=== PATIENT | female | born 1945 | race Caucasian/White ===

== ENCOUNTER 2019-03-14 16:04 | Inpatient (IN) | payer MEDICARE ==
[~2019-03-14] VITALS: Ht 161.3 cm; Wt 51.2 kg
--- NOTE | ~2019-03-14 | PN ---
PATIENT:ARTHUR TOBAR MEDICAL RECORD: [id number] LOCATION:[facility] ADMISSION DATE: 03/14/19 PROGRESS NOTE DATE OF SERVICE: 03/23/2019 SUBJECTIVE: Ms. Tobar is a 73-year-old female who was admitted secondary to after having been found by a neighbor lying down in her own feces. The patient, this morning, for our approach was lying in her bed basically talking to herself. She continues to complain of pain. I had discussed with CARB[employer] ROD INSERTER yesterday and baclofen has been increased. Apparently, the patient has been unable or unwilling to work with PT. No hallucinations. She slept 8 hours, eating 20, 100 and 20%. Last bowel movement on the . Latest vital signs 99, 113, 18, 122/59 and 96%. Coreg was discontinued yesterday due to hypotension. Also, her vitamin D is extremely low at 18.3, 5000 units daily have been started. ASSESSMENT: Unchanged. PLAN: As above. We will start vitamin D. Anticipate discharge to a nursing care as the patient is unable to physically take care of herself and continues to be confused. TRANSINT:[id number] Voice Confirmation ID: [id number] DOCUMENT ID: [id number] PEDRO GARCÍA MD CC: [id number] DICTATION DATE: 03/23/19719 WHEEL BLOCKER: 03/23/19 1424 ADM IN [address] [place] [address]
[2019-03-14] MEDS ORDERED: HYDROCODON-ACE1 EA10 PO (16:26)
[2019-03-14] MEDS ORDERED: NEURONTIN600 MG (16:27)
[2019-03-14] MEDS ORDERED: REMERON30 MG PO (16:28)
[2019-03-14] MEDS ORDERED: COUMADIN7.5 MG PO (16:29)
[2019-03-14] MEDS ORDERED: XANAX1 MG PO (16:29)
[2019-03-14] MEDS ORDERED: CARDIZEM CD240 MG PO (16:30)
[2019-03-14] MEDS ORDERED: COREG 3.1253.125 MG PO (16:30)
[2019-03-14] MEDS ORDERED: ROCEPHIN 1 GM/D51 G1 IV (16:32)
[2019-03-14] MEDS ORDERED: DIFLUCAN150 MG PO (16:33)
[2019-03-14 20:03] VITALS: BP 140/74
--- NOTE | 2019-03-15 02:15 | NUR ---
Patient arrive at 19:40 from , calm and cooperative and confused, VSS T 98.1, BP 140/74, P 104, R 22, O2 99%, Code word is kiara, code status is Full Code, patient went straight to sleep, Verbal consent for treatment from patient at 01:00 when she work up for a short time, no children, last August, will continue to monitor.
[2019-03-15 02:36] VITALS: BP 140/74; BMI 24.0
[2019-03-15 07:21] LABS: BASOPHILS 0.3 % (0-2); EOSINOPHILS 0.5 % (0-7); HEMATOCRIT 38.9 % (36.0-48.0); HEMOGLOBIN 13.8 g/dL (12-16); IMMATURE GRANULOCYTES 0.2 % (0-5); LYMPHOCYTES 27.5 % (15-50); MCH 31.9 pg (26.0-34.0); MCHC 35.5 g/dL (31.0-37.0); MCV 89.8 fL (80.0-100.0); MEAN PLATELET VOLUME 8.7 fL (7.4-10.4); MONOCYTES 6.3 % (2-11); NEUTROPHILS 65.2 % (40-80); PLATELET COUNT 293 10x3/uL (130-400); RBC 4.33 10x6/uL (4.00-5.40); RDW 13.8 % (11.5-14.5)
[2019-03-15 07:38] LABS: INR 1.31 (0.85-1.17); PROTIME 15.7 SECONDS (11.6-15.0)
[2019-03-15 07:47] LABS: ALBUMIN 2.8 g/dL (3.4-5.0); ALKALINE PHOSPHATASE 61 U/L (46-116); ALT (SGPT) 33 U/L (10-68); CALC OSMOLALITY 276 mosm/kg (275-300); CALCIUM 10.4 mg/dL (8.5-10.1); CARBON DIOXIDE 28.3 mmol/L (21.0-32.0); CHLORIDE - SERUM 103 mmol/L (98-107); CHOL - HDL RATIO 4.9 ratio (2.3-4.1); CHOLESTEROL, TOTAL 195 mg/dL (0-200); CREATININE - SERUM 0.5 mg/dL (0.6-1.3); GLUCOSE 104 mg/dL (74-106); HDL CHOLESTEROL 40 mg/dL (32-96); LDL CHOLESTEROL 141 mg/dL (0-100); LDL-HDL RATIO 3.5 ratio (1.5-3.5); POTASSIUM - SERUM 3.9 mmol/L (3.5-5.1); PROTEIN - SERUM 7.5 g/dL (6.4-8.2); SODIUM 138 mmol/L (136-145); THYROID STIMULATING HORMONE 0.54 uIU/mL (0.36-3.74); TRIGLYCERIDE 74 mg/dL (30-200); UREA NITROGEN 15 mg/dL (7-18); eGFR NON AFRICAN AMERICAN > 90 mL/min (90-120)
[2019-03-15 08:52] VITALS: BMI 24.0
[2019-03-15 09:20] VITALS: BP 158/81
[2019-03-15 09:25] VITALS: Ht 161.3 cm; Wt 51.2 kg
--- NOTE | 2019-03-15 10:22 | NUR ---
B) The patient is awake, she is pleasant, she knows her name, , but she doesn't know the place or date. She can not tell us her age either. She is not ambulatory, although, according to staff at [facility], she has a neighbor that states she lived alone and walking before he found her in her bed covered in feces. Today she presents quiet, calm, and she does smile at staff. She is interacting in groups. I) Provide prescribed meds, encourage all groups and activities. R) The patient is interacting with staff and peers. She denies S.I., she has poor insight into her situation. P) Continue POC.
--- NOTE | 2019-03-15 14:45 | NUR ---
Did get the patient's EKG, it does show some tachycardia.
--- NOTE | 2019-03-15 15:56 | NUR ---
The patient is getting upset with the other patient yelling and asks "How do you do it and how can you stand that, some of these people are scary." Did provide ativan 0.5 mg PO now.
--- NOTE | 2019-03-15 16:21 | NUR ---
The patient is calmer now, she says the pill did help her. She says "Yes, I'm ok."
[2019-03-15 20:10] VITALS: BP 157/86
--- NOTE | 2019-03-16 04:50 | NUR ---
B) Patient is alert and orieted to self, calm and cooperative, I) Administered scheduled medications as ordered, mionitored for safety R) Mediation compliant, sleeping quietly in her bed, P) Continue plan of care.
[2019-03-16 06:12] LABS: VITAMIN D 25 HYDROXY 18.3 ng/mL (30.0-100.0)
[2019-03-16 07:19] LABS: RAPID PLASMA REAGIN Non Reactive (Non Reactive)
[2019-03-16 07:30] VITALS: BP 136/70
--- NOTE | 2019-03-16 08:55 | NUR ---
B) Dr. Geller came in and spoke with this patient and I did hear her ask the for pain medication. He said he would order a patch. The patient says she is in pain. Her v/s are wnl and she does not show any facial grimacing. I) Provide prescribed meds. R) The patient is compliant with meds. P) Continue POC.
[2019-03-16 10:10] LABS: FOLATE (FOLIC ACID) - SERUM 13.1 ng/mL (>3.0)
[2019-03-16 20:07] VITALS: BP 129/67
--- NOTE | 2019-03-16 21:48 | NUR ---
B) Patient is alert and oriented to person and place, calm and cooperative, I) Administered scheduled medications as ordered, monitored for wants and needs, R) Mediation compliant, pleasant and friendly toward staff, P) Continue plan of care.
[2019-03-17 07:00] VITALS: BP 116/65
[2019-03-17 10:39] LABS: INR 1.47 (0.85-1.17); PROTIME 17.2 SECONDS (11.6-15.0)
--- NOTE | 2019-03-17 10:53 | NUR ---
RECEIVED PATIENT IN DINING ROOM FOR B'FAST, ALERT, CALM, COOPERATIVE, MILDLY CONFUSED. MEDS ADMIN PER ORDERS WITH COMPLETE MED COMPLIANCE NOTED. COOPERATIVE WITH GROUOP ACTIVITY AND STAFF REQUESTS. CONT POC INCLUDING MEDS AND GROUP THERAPY DIRECTED.
--- NOTE | 2019-03-17 18:16 | NUR ---
FAMILY FRIEND, ALEJANDRINA KOO VISITED TODAY AND A GOOD VISIT WAS ENJOYED BY BOTH PARTIES.
[2019-03-17 19:59] VITALS: BP 101/44
--- NOTE | 2019-03-17 21:23 | NUR ---
RECEIVED IN DAYROOM. RESTING IN RECLINER WITH EYES OPEN. CALM AND COOPERATIVE WITH CARE AND ASSESSMENT. NO SIGNS OF HALLUCINATIONS. REDIRECT AND REORIENT NEEDED. RESTING IN BED WITH EYES OPEN AT THIS TIME. CONTINUE PLAN OF CARE.
--- NOTE | 2019-03-17 21:33 | NUR ---
PATIENT HAD WATERY BM WITH FOUL ODOR. PATIENT PLAYED IN BM. PATIENT CLEANED AND LINENS CHANGED.
[2019-03-18 08:29] VITALS: BP 138/76
--- NOTE | 2019-03-18 10:00 | NUR ---
AWAKE AND ALERT TO SELF AND PLACE. CALM AND COOPERATIVE WITH CARE AND ASSESSMENT. SHE IS A TOTAL ASSIST. HAS HAD TWO LOOSE BOWEL MOVEMENTS TODAY. UNABLE TO OBTAIN A STTOL SPECIMEN YET. MEDICATION COMPLIANT. REDIRECT AND REORIENT NEEDED. FALL PRECAUTIONS IN PLACE. WILL CONTINUE POC.
[2019-03-18 10:44] LABS: INR 2.1 (0.85-1.17); PROTIME 22.9 SECONDS (11.6-15.0)
[2019-03-18 22:23] VITALS: BP 90/58
--- NOTE | 2019-03-18 22:33 | NUR ---
RECEIVED IN PATIENT ROOM. RESTING IN BED WITH EYES OPEN. CALM AND COOPERATIVE WITH CARE AND ASSESSMENT. NO SIGNS OF HALLUCINATIONS. REDIRECT AND REORIENT NEEDED. RESTING IN BED WITH EYES CLOSED AT THIS TIME. CONTINUE PLAN OF CARE.
[2019-03-19 08:00] VITALS: BP 98/52
--- NOTE | 2019-03-19 16:57 | PN ---
PATIENT:ARTHUR HAHN MEDICAL RECORD: [id number] LOCATION:[facility] ADMISSION DATE: 03/14/19 PROGRESS NOTE DATE OF SERVICE: 03/18/2019 SUBJECTIVE: Ms. Hahn is a 73-year-old female who was found by her 's friend and her neighbor covered in feces. Apparently, the patient had been hallucinating, seeing cats. Patient today, nursing states and as was consistent with my interview, was complaining of almost continual pain, noted that she had a 10 mg [place] ordered t.i.d. p.r.n. and a positive opiate urine drug screening, there was some thought that the patient had been taking these indiscriminately. The patient although she has complaints of pain, is not able to specify any particular pain meds that she wants. We will get records from GP, but apparently the patient has been prescribed opiates until admission. Her latest vital signs are 97.3, 106, 20, 138/76, and 98%. Noted that the patient's constipation medicine has been held because she is having loose stools, also consistent with opiate withdrawal. Slept 8.25 hours, eating 100%, 95%, and 75%. Last bowel movement is recent. ASSESSMENT: Unchanged, add probable opiate withdrawal. PLAN: We will restart [place], albeit at a lower dose from 10 t.i.d. to 5 b.i.d. to see to what extent this will help her with her pain complaints as the patient is also taking a low-dose benzodiazepine. We will monitor carefully respiratory status with this patient. At this point, the placement will be necessary, although I am not sure there is family to help in this process, the patient certainly is mentally and physically unable to care for self. Physical therapy is continuing for her debilitation. Case was discussed with nursing. Electronic chart reviewed. The patient interviewed. TRANSINT:[id number] Voice Confirmation ID: [id number] DOCUMENT ID: [id number] PEDRO GARCÍA MD at 1657 CC: [id number] DICTATION DATE: 03/18/19 173 PATHOLOGY SUPERVISOR: 03/19/19 0458 ADM IN [id number] [place] [address]
--- NOTE | 2019-03-19 16:57 | PN ---
PATIENT:ARTHUR HAHN MEDICAL RECORD: [id number] LOCATION:[facility] ADMISSION DATE: 03/14/19 PROGRESS NOTE DATE OF SERVICE: 03/16/2019 SUBJECTIVE: Ms. Hahn is a 73-year-old female who was admitted after a neighbor found her basically lying in her own feces and it appeared she had been there for several days. The patient on interview continues to be confused, but pleasant and cooperative. She did not recognize me from yesterday, although pretended that she did. Nursing reports she is calm, pleasant, and confused. No aggression. She slept 7.25 hours, eating 45, 10, and 50% and bowel movement on the . She has also reported as seeing cats, although I have not gotten any reports of this and she has not voiced that to me. OBJECTIVE: Latest vital signs: Include 97.5, 115, 18, 136/70, and 98% on room air. ASSESSMENT: Unchanged. PLAN: We will add Aricept to her medication list for help with slowing process of dementia. We will continue the process of looking for a rehab unit as the patient is physically debilitated and is nonambulatory at this point and neighbor reports she was ambulatory, not very long ago and it appears just to be muscle wasting. We will ask physical therapy to aid in this process. Case discussed with nursing, cart reviewed, and patient interview. TRANSINT:[id number] Voice Confirmation ID: [id number] DOCUMENT ID: [id number] PEDRO GARCÍA MD at 1657 CC: [id number] DICTATION DATE: 03/16/19 1310 ASSOCIATE ACCOUNT EXECUTIVE: 03/16/19 2334 ADM IN [facility] [address] [id number]
--- NOTE | 2019-03-19 18:00 | NUR ---
PATIENT IS AWAKE AND ALERT TO SELF AND PLACE. CALM AND COOPERATIVE WITH CARE AND ASSESSMENT. COMPLIANT WITH MEDICATIONS. REDIRECT AND REORIENT NEEDED. WILL CONTINUE POC.
[2019-03-19 19:48] VITALS: BP 120/55
--- NOTE | 2019-03-19 21:41 | NUR ---
RECEIVED IN HALLWAY. RESTING IN RECLINING CHAIR OUTSIDE OF NURSES STATION. ASSIST TO BATHROOM AND THEN TO BED. ENCOURAGE TO EXPRESS NEEDS. RESTING IN BED WITH EYES CLOSED AT THIS TIME. CONTINUE PLAN OF CARE
[2019-03-20 07:42] VITALS: BP 106/56
--- NOTE | 2019-03-20 15:38 | NUR ---
PATIENT IS AWAKE AND ORIENTED TO PERSON AND PLACE. CALM AND COOPERATIVE WITH CARE AND ASSESSMENT. COMPLIANT WITH MEDICATIONS. REDIRECT AND REORIENT. NO HALLUCINATION NOTED. CONTINUE PLAN OF CARE.
[2019-03-20 20:00] VITALS: BP 142/75
--- NOTE | 2019-03-20 23:03 | NUR ---
RECEIVED IN HALLWAY OUTSIDE OF NURSES STATION. RESTING IN RECLINER WITH EYES OPEN. CALM AND COOPERATIVE WITH CARE AND ASSESSMENT. NO SIGNS OF HALLUCINATIONS. REDIRECT AND REORIENT NEEDED. RESTING IN BED WITH EYES CLOSED AT THIS TIME. CONTINUE PLAN OF CARE.
[2019-03-21 06:17] LABS: INR 4.58 (0.85-1.17); PROTIME 42.5 SECONDS (11.6-15.0)
[2019-03-21 07:46] VITALS: BP 111/52
--- NOTE | 2019-03-21 10:00 | NUR ---
RECEIVED PATIENT IN DINING ROOM FOR B'FAST, ALERT, CALM, COOPERATIVE, APPETITE GOOD, NO HALLUCINATIONS NOTED. MEDS ADMIN PER ORDERS WITH COMPLETE MED COMPLIANCE NOTED. TAKES MEDS WHOLE. COOPERATIVE WITH STAFF AND GROUP THERAPY. CONT POC INCLUDING MEDS AND GROUP THERAPY DIRECTED.
--- NOTE | 2019-03-21 14:03 | NUR ---
Nutrition follow-up: Diet: Regular PO intake 100% of most meals Labs reviewed Wt: 112# +BM RDN following.
[2019-03-21 20:20] VITALS: BP 127/69
--- NOTE | 2019-03-21 21:40 | NUR ---
B) patient is alert and oriented to self, calm and cooperative this shift, I) Administered scheduled medication as ordered, monitored for safety, R) Mediation compliant, resting quietly in bed now, P) Continue plan of care.
[2019-03-22 07:35] VITALS: BP 109/48
[2019-03-22 07:48] LABS: INR 3.88 (0.85-1.17); PROTIME 37.2 SECONDS (11.6-15.0)
--- NOTE | 2019-03-22 15:27 | NUR ---
The patient is awake and alert. She is negative and making multiple complaints. She is not happy with the music or activities. She is eating better. She is compliant with meds and unit milieu. Continue POC.
[2019-03-22 20:00] VITALS: BP 122/59
--- NOTE | 2019-03-22 22:44 | NUR ---
B) Patient is alert and oriented to person and place, calm and cooperative this shift, I) Administered scheduled medications as ordered, monitored for safety and for needs, R) mediation compliant, resting quietly in bed now, P) Continue plan of care.
[2019-03-23 08:21] LABS: PROTIME 27.7 SECONDS (11.6-15.0)
[2019-03-23 08:22] LABS: INR 2.67 (0.85-1.17)
[2019-03-23 08:23] LABS: BASOPHILS 0.2 % (0-2); EOSINOPHILS 2.3 % (0-7); HEMATOCRIT 32.2 % (36.0-48.0); HEMOGLOBIN 10.9 g/dL (12-16); IMMATURE GRANULOCYTES 0.2 % (0-5); LYMPHOCYTES 37.7 % (15-50); MCH 31.1 pg (26.0-34.0); MCHC 33.9 g/dL (31.0-37.0); MEAN PLATELET VOLUME 8.7 fL (7.4-10.4); MONOCYTES 7.9 % (2-11); NEUTROPHILS 51.7 % (40-80); PLATELET COUNT 263 10x3/uL (130-400); RDW 14.5 % (11.5-14.5); WBC 6.6 10x3/uL (4.8-10.8)
[2019-03-23 08:39] VITALS: BP 123/63
--- NOTE | 2019-03-23 08:50 | PN ---
PATIENT:ARTHUR TOBAR MEDICAL RECORD: [id number] LOCATION:[facility] ADMISSION DATE: 03/14/19 PROGRESS NOTE DATE OF SERVICE: 03/19/2019 SUBJECTIVE: Ms. Tobar is a 73-year-old female who was admitted after having been found in her own feces at her house. She is confused. She was having lots of complaints of pain and it looks like the patient had been getting t.i.d. 10 mg [place] dose at her home and her opiate screen was positive by report, but it is unclear how accurate her dosing was. Now, the patient is having less complaints of pain. She is voicing some discomfort, but less. She is doing physical therapy. It is noted, however, that since the initiation of her [place] her vital signs have dropped precipitously on most parameters and now her latest blood pressure is 98/52, where on the in the morning it has been 138/76. Rest of her vitals are 98.6, 84, 18, and 97%. She slept 10-1/2 hours, eating 100, 50, and 50% of meals and last bowel movement on the . Since initiation of the Campbell, her loose stools have attenuated and now more formed. ASSESSMENT: Unchanged. PLAN: We will decrease clonazepam in response to the patient's hypotension. Continue to monitor for confusion and transfer to a rehab facility when stable. Case discussed with nursing. Chart reviewed and patient interviewed. TRANSINT:[id number] Voice Confirmation ID: [id number] DOCUMENT ID: [id number] PEDRO GARCÍA MD at 0850 CC: [id number] DICTATION DATE: 03/19/191743 BOIL OFF MACHINE OPERATOR CLOTH: 03/20/19 0254 ADM IN [facility] [address] [place] [address]
--- NOTE | 2019-03-23 08:50 | PSY ---
PATIENT NAME:ARTHUR TOBAR MEDICAL RECORD: [id number] : 43 LOCATION:[facility] ADMISSION DATE: 03/14/19 ACCOUNT: [id number] PSYCHIATRIC EVALUATION DATE OF EVALUATION: 03/15/19 HISTORY OF PRESENT ILLNESS: Ms. Tobar is a 73-year-old female who was in August 2018. Apparently, she had been ambulatory, taking care of herself, but with complaints of chronic back pain according to information. She was found by a neighbor lying in her own feces. It appeared to be had been a day or two and she was sent to the hospital. On my interview with her, patient minimized all this, states she is just here for pain, and unsure of how she got here or why she was here. She denies suicidal or homicidal ideation, auditory or visual hallucinations or delusions. She is pleasantly confused on interview. The patient denies suicidal or homicidal ideation, auditory or visual hallucinations or delusions. PAST PSYCHIATRIC HISTORY: She is unaware of any at this point. PAST MEDICAL HISTORY: She apparently does have a UTI according to med list as the patient is unsure of her own. She has hypertension, arrhythmias, and candidiasis. MEDICATIONS: Her admitting medications include fluconazole 150 mg 1 p.o. every day, Rocephin 1 gram IV q.12 hours, started on 03/13/2019, it is supposed to end on 03/17/2019, Coumadin 7.5 mg 1 every day, carvedilol, Coreg 3.25 mg 1 p.o. b.i.d., Cardizem 240 mg a day, mirtazapine 30 mg a day, Xanax 1 mg t.i.d. p.r.n., gabapentin it says 600 mg 5 times a day, and hydrocodone 10/325 one p.o. t.i.d. SOCIAL HISTORY: She lives by herself in the [place] area. She is , her in August 2018. They had no children and apparently no relatives. She has a neighbor who is her 's friends and that comes and checks on her. DRUG AND ALCOHOL: She denies the use of any drugs or alcohol in her history. FAMILY PSYCHIATRIC HISTORY: She denies. MENTAL STATUS EXAMINATION: GENERAL: This is a 73-year-old female, dressed and groomed casually and appropriately, looks somewhat malnourished. She is a 63.5 kilograms. She has good eye contact. Speech is regular rate and rhythm. MOOD: Good. THOUGHT PROCESSES: Rational, but confused, relevant, goal directed. THOUGHT CONTENT: Negative for suicidal or homicidal ideation, auditory or visual hallucinations or delusions. Cognitive exam as above. She did not know the year, the month, the day. She thought we were in [place]. She did not know who the president is. 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 PLAN: We will restart her gabapentin at 600 t.i.d. until further records can be known. We will stop her p.r.n. Xanax and start clonazepam 0.25 t.i.d. instead. We will continue mirtazapine. We will get further information medical records if possible. Case discussed with nursing. Chart reviewed and the patient interviewed. TRANSINT:[id number] Voice Confirmation ID: [id number] DOCUMENT ID: [id number] PEDRO GARCÍA MD at 0850 CC: [id number] DICTATION DATE: 03/15/19 1525 DENTAL OFFICER: 03/15/19 4249 ADM IN [id number] [place] [address]
--- NOTE | 2019-03-23 08:50 | PN ---
PATIENT:ARTHUR HAHN MEDICAL RECORD: [id number] LOCATION:[facility] ADMISSION DATE: 03/14/19 PROGRESS NOTE DATE OF SERVICE: 03/21/2019 SUBJECTIVE: Ms. Hahn is a 73-year-old female who had been found by a neighbor and had been apparently lying in her own feces for several days. It was suspected that she has been taking too many of her opiates as she was strident in her complaints of pain and her urine drug screen was positive for opiates. The patient seemed really confused. The patient today, perhaps maybe for the first time, is not necessarily complaining of pain, but states she is tired. She knows I am the doctor, but cannot remember my name. She does not know the day of the week. She does know the month and is unsure about the year. She slept 7-1/2 hours last night; eating 100%, 95%, and 95%. Her last bowel movement was on the . VITAL SIGNS: Temperature 97.5, pulse 83, respiratory rate 17, blood pressure 111/52, and saturation 96%. ASSESSMENT: Unchanged. PLAN: I have gotten no report of hallucinations and the patient has not voiced it to me for several days. At this point, rehabilitative care would be a good option for this patient and then onto some structure of care, probably prison, as the patient has not been able to walk and she continues quite confused. The patient's diastolic blood pressures have consistently been low in the 50s. Considering the addition of her opiates and mirtazapine as well and she is on a benzodiazepine, I backed off her Coreg and we will wait a few days. If her blood pressures continue with diastolics in the 50s, we will consider discharge altogether. Case discussed with nursing. Chart was reviewed and the patient was interviewed. TRANSINT:[id number] Voice Confirmation ID: [id number] DOCUMENT ID: [id number] PEDRO GARCÍA MD at 0850 CC: [id number] DICTATION DATE: 03/21/19 1202 ELECTRIFIER OPERATOR: 03/21/19 1231 ADM IN [id number] [place] [address]
--- NOTE | 2019-03-23 08:50 | PN ---
PATIENT:ARTHUR TOBAR MEDICAL RECORD: [id number] LOCATION:[facility] ADMISSION DATE: 03/14/19 PROGRESS NOTE DATE OF SERVICE: 03/22/2019 SUBJECTIVE: Ms. Tobar is a 73-year-old female who was admitted after a neighbor found the patient lying in feces and looked like she has been there for several days. The patient mainly is focused on somatic complaints, pain, and her prehospital medication list would suggest that this has been a chronic complaint for her. She discussed extensively with TONGSMAN covering for medicine, balance between sedation and pain complaints and the patient's likely discharge disposition considering she has not been able or willing to work with physical therapy to stand at all. The patient is still confused. Her latest vital signs are 98.8, 82, 15, 109/48, 96%. She slept 7 hours, eating 100% of all meals and last bowel movement on the . ASSESSMENT: Unchanged. PLAN: After discussion with TONGSMAN, TONGSMAN will probably increase baclofen to help with pain. I talked to social work therapist today about discharge disposition and try for rehab but if not possible then a nursing home bed if that is possible. The patient is simply not able to take care of herself at this time due to physical disability and mental confusion. We will discontinue Coreg as some of her diastolics have been in the 40s and 50s now. Case discussed with nursing. Chart reviewed and the patient interviewed. TRANSINT:[id number] Voice Confirmation ID: [id number] DOCUMENT ID: [id number] PEDRO GARCÍA MD at 0850 CC: [id number] DICTATION DATE: 03/22/19 140 MANDREL MAKER: 03/22/19 1454 ADM IN [facility] [address] [place] [address]
--- NOTE | 2019-03-23 08:50 | PN ---
PATIENT:ARTHUR HAHN MEDICAL RECORD: [id number] LOCATION:[facility] ADMISSION DATE: 03/14/19 PROGRESS NOTE DATE OF SERVICE: 03/20/2019 SUBJECTIVE: Ms. Hahn is a 73-year-old female who came from home after a neighbor found her having fallen in her own feces. The patient continues confused. She is cooperative. Her major complaints seems to be longstanding pain. She is indeed sitting on one side of her buttocks. She slept, however, 10 hours, eating 100%, 75% and 50%. Last bowel movement on the . Her vital signs particularly her blood pressure continues to a low diastolic pressures. She is now on benzo and opiate and mirtazapine. Noted that she is on Coreg b.i.d. as well. OBJECTIVE: Her overall vital signs; blood pressure 98.8, heart rate 83, respiratory rate 20, blood pressure 106/56, and oxygen saturation 99%. ASSESSMENT: Unchanged. PLAN: We will decrease Coreg from b.i.d. to every day dosing. Case discussed with nursing. Chart reviewed and the patient interviewed. We will try to get her outpatient provider chart to get further elucidation of her history of pain complaints. Case discussed with nursing, chart review and patient interviewed. TRANSINT:[id number] Voice Confirmation ID: [id number] DOCUMENT ID: [id number] PEDRO GARCÍA MD at 0850 CC: [id number] DICTATION DATE: 03/20/19 1749 MACHINE BENDER: 03/21/19 1005 ADM IN [address] [place] [address]
--- NOTE | 2019-03-23 10:00 | NUR ---
B) The patient awakened in a negative mood and she continued with being negative. She says "I can't do that." Asked what she was so unhappy about, and she states "Well, I just don't have anything to do." Sat with her and asked her "What she meant." She said "I've always had someone to take care of and now I don't." Explained to her that she can be helpful by giving a smile or a kind word. Explained to her that would be her goal today. She has to smile one time to everyone in the room. She said "Well, ok, but I just hurt so badly." Explained to her that she has had her pain meds and that they should be kicking in and helping her. I) Provide prescribed meds. Redirect to a positive attitude. R) The patient is compliant with meds. P) Continue POC.
--- NOTE | 2019-03-23 13:30 | NUR ---
The patient was assisted to her room in the bed to get an x-ray that Sherine Levin APN ordered.
[2019-03-23 20:21] VITALS: BP 126/47
--- NOTE | 2019-03-24 07:30 | NUR ---
REC'D PT IM HALLWAY IN RECLINING CHAIR WITH PEERS. PT IS ALERT TO PERSON. CALM AND COOPERATIVE WITH ASSESSMENT. REDIRECT AND REORIENT NEEDED. MED COMPLIANT. FALL PRECAUTIONS IN PLACE. WILL CPOC.
[2019-03-24 08:00] VITALS: BP 114/57
--- NOTE | 2019-03-24 20:55 | NUR ---
RECEIVED IN DAYROOM. SITTING IN A CHAIR WITH PEERS AT HER SIDE. NOO STATEMENTS OF SELF HARM VOICE. REDIRECT AND REORIENT NEEDED. SITTING QUIETLY AT THIS TIME. CONTINUE PLAN OF CARE
[2019-03-24 23:51] VITALS: BP 119/46
[2019-03-25 07:24] LABS: PROTIME 22.5 SECONDS (11.6-15.0)
[2019-03-25 07:26] LABS: INR 2.05 (0.85-1.17)
--- NOTE | 2019-03-25 07:30 | NUR ---
REC'D IN HALLWAY SITTING IN W/C BY NURSES STATION. ALERT AND ORIENTED TO PERSON. REDIRECT AND REORIENT NEEDED. CALM AND COOPERATIVE WITH ASSESSMENT. MED COMPLIANT. FALL PRECAUTIONS IN PLACE. WILL CPOC.
[2019-03-25 08:00] VITALS: BP 145/55
--- NOTE | 2019-03-25 14:53 | PN ---
PATIENT:ARTHUR TOBAR MEDICAL RECORD: [id number] LOCATION:[facility] ADMISSION DATE: 03/14/19 PROGRESS NOTE DATE OF SERVICE: 03/24/2019 SUBJECTIVE: The patient's case was discussed with staff. She has no new complaint. OBJECTIVE: The patient is in good behavioral control with limited insight about her condition. She is not fully oriented. ASSESSMENT: 1. Major depression. 2. Dementia. PLAN: The patient will be maintained on current medicines with the exception of the Remeron, which I am going to taper. In addition to this, I will discontinue her scheduled dose of hydrocodone and place her on Ultram. TRANSINT:[id number] Voice Confirmation ID: [id number] DOCUMENT ID: [id number] VICTOR MANUEL HORNER MD at 1453 CC: [id number] DICTATION DATE: 03/24/19 1536 SLITTER HELPER: 03/24/19 1633 ADM IN [id number] [place] [address]
[2019-03-25 20:06] VITALS: BP 115/49
[2019-03-25 23:54] LABS: APPEARANCE HAZY (CLEAR); BILIRUBIN NEGATIVE (NEGATIVE); COLOR YELLOW (YELLOW); GLUCOSE NEGATIVE (NEGATIVE); KETONE NEGATIVE (NEGATIVE); NITRITE NEGATIVE (NEGATIVE); PROTEIN NEGATIVE (NEGATIVE); SPECIFIC GRAVITY 1.025 (1.005-1.020); UROBILINOGEN NORMAL (NORMAL)
[2019-03-25 23:57] LABS: BACTERIA FEW /hpf (NONE SEEN); EPITHELIAL CELLS OCC /hpf (0-5); RED CELLS - URINE RARE /hpf (0-5)
--- NOTE | 2019-03-26 04:09 | NUR ---
RECEIVED IN DAYROOM. RESTING IN RECLINER WITH EYES OPEN. CALM AND COOPERATIVE WITH CARE AND ASSESSMENT. NO SIGNS OF HALLUCINATIONS. REDIRECT AND REORIENT NEEDED. RESTING IN BED WITH EYES CLOSED AT THIS TIME. CONTINUE PLAN OF CARE.
--- NOTE | 2019-03-26 07:30 | NUR ---
REC'D PT IN BED WITH EYES OPEN. ALERT AND ORIENTED TO PERSON. CALM AND COOPERATIVE WITH ASSESSMENT. MED COMPLIANT. REDIRECT AND REORIENT NEEDED. NO AGGRESSION NOTED. FALL PRECAUTIONS IN PLACE. WILL CPOC.
[2019-03-26 08:32] VITALS: BP 131/47
--- NOTE | 2019-03-26 15:05 | PN ---
PATIENT:ARTHUR TOBAR MEDICAL RECORD: [id number] LOCATION:[facility] ADMISSION DATE: 03/14/19 PROGRESS NOTE DATE OF SERVICE: 03/25/2019 SUBJECTIVE: The patient's case was discussed with staff. She has no new complaint. OBJECTIVE: The patient is sleeping adequately and eating adequately. ASSESSMENT: 1. Major depression. 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 PLAN: The patient is taking Remeron, which I plan to continue tapering. I will reduce the dose today to 7.5 mg at bedtime and will discontinue the medication altogether tomorrow. I am doing this because Remeron is highly antihistaminic and I am convinced that this is having a negative impact on her cognition. TRANSINT:[id number] Voice Confirmation ID: [id number] DOCUMENT ID: [id number] VICTOR MANUEL HORNER MD at 1505 CC: [id number] DICTATION DATE: 03/25/19 1512 ANESTHESIOLOGY CRNA: 03/25/19 1521 ADM IN [place] [id number] [place] [id number]
--- NOTE | 2019-03-26 20:48 | NUR ---
RECEIVED IN BEDROOM. ASSISTING TO BED AT BEDTIME. CONFUSED. CALM AND COOPERATIVE WITH CARE AND ASSESSMENT. NO STATEMENTS OF SELF HARM MADE. ENCOURAGE TO EXPRESS NEEDS. RESTING QUIETLY IN BED AT THIS TIME. CONTINUE PLAN OF CARE
--- NOTE | 2019-03-27 08:10 | NUR ---
REC'D PT SITTING IN WHEELCHAIR. PT IS ORIENTED TO PERSON, AND SITUTION. RESP EVEN AND NONLABORED. NO ACUTE DISTRESS NOTED. PT IS PLESANT WITH STAFF AND PEERS. PT TRANFERS WITH ASSIST. MED COMPLIANT. CHAIR ALARM IN PLACE AND ACTIVE. WILL CONT PLAN OF CARE.
[2019-03-27 08:31] VITALS: BP 150/123
--- NOTE | 2019-03-27 13:17 | PN ---
PATIENT:RATHUR TOBAR MEDICAL RECORD: [id number] LOCATION:[facility] ADMISSION DATE: 03/14/19 PROGRESS NOTE DATE OF SERVICE: 03/26/2019 SUBJECTIVE: The patient's case was discussed with staff. She has no new complaint. OBJECTIVE: The patient is in good behavioral control. She has limited insight about her condition. She is tolerating her medicines well. ASSESSMENT: 1. Major depression. 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 PLAN: I anticipate the patient can be transitioned to a rehabilitative services soon. I have reviewed her current medications and I am going to discontinue the Remeron. Her long-term prognosis is guarded. TRANSINT:[id number] Voice Confirmation ID: [id number] DOCUMENT ID: [id number] VICTOR MANUEL HORNER MD at 1317 CC: [id number] DICTATION DATE: 03/26/19 1537 [facility] DEMONSTRATOR: 03/26/19 1550 ADM IN [place] [id number] [place] [address]
[2019-03-27] MEDS ORDERED: BACLOFEN10 MG PO (16:38)
[2019-03-27] MEDS ORDERED: DONEPEZIL HCL5 MG PO (16:38)
[2019-03-27] MEDS ORDERED: NEURONTIN 300300 MG PO (16:39)
[2019-03-27] MEDS ORDERED: MOBIC7.5 MG PO (16:39)
[2019-03-27] MEDS ORDERED: LIDODERM 5 %1 PATCH TRANSDERM (16:40)
[2019-03-27] MEDS ORDERED: VESICARE5 MG PO (16:40)
[2019-03-27] MEDS ORDERED: VITAMIN D5000 UNIT PO (16:40)
[2019-03-27] MEDS ORDERED: OS-CAL500 MG PO (16:40)
--- NOTE | 2019-03-27 19:10 | NUR ---
PATIENT SITTING IN CHAIR. NO ACUTE DISTRESS NOTED. RESP EVEN AND NONLABORED. NO ACUTE DISTRESS NOTED. MED COMPLIANT. CHAIR ALARM IN PLACE ADN ACTIVE. WILL CONT PLAN OF CARE.
--- NOTE | 2019-03-27 19:33 | NUR ---
RECEIVED IN HALLWAY OUTSIDE OF NURSES STATION. SITTING QUIETLY IN WHEELCHAIR. CALM AND COOPERATIVE WITH CARE AND ASSESSMENT. NO HALLUCINATIONS NOTED. REDIRECT AND REORIENT NEEDED. RESTING IN BED WITH EYES OPEN AT THIS TIME. CONTINUE PLAN OF CARE.
--- NOTE | 2019-03-28 07:31 | NUR ---
REC'D PATIENT LAYING IN BED WITH EYES CLOSED. RESP EVEN AND NONLABORED. NO ACUTE DISTRESS NOTED. REORIENT AND REDIRECT NEEDED. BED ALARM IN PLACE AND ACTIVE. MED COMPLIANT. NO BEHAVIORS REPORTED FROM PREVIOUS SHIFT. WILL CONT PLAN OF CARE.
[2019-03-28 08:21] LABS: INR 2.19 (0.85-1.17); PROTIME 23.7 SECONDS (11.6-15.0)
[2019-03-28 12:29] VITALS: BP 149/62
--- NOTE | 2019-03-28 13:47 | PN ---
PATIENT:ARTHUR TOBAR MEDICAL RECORD: [id number] LOCATION:[facility] ADMISSION DATE: 03/14/19 PROGRESS NOTE DATE OF SERVICE: 03/27/2019 SUBJECTIVE: The patient's case was discussed with staff. She has no new complaint. OBJECTIVE: The patient is eating well and sleeping reasonably well. She is tolerating her medications adequately and has pretty limited insight about her situation. 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 2. Major depression. PLAN: The patient will be discharged from the hospital tomorrow. Her long-term prognosis is guarded. TRANSINT:[id number] Voice Confirmation ID: [id number] DOCUMENT ID: [id number] VICTOR MANUEL HORNER MD at 1347 CC: [id number] DICTATION DATE: 03/27/19 1636 AGENCY APPOINTMENTS SUPERVISOR: 03/27/19 2143 ADM IN [facility] [address] [place] [address]
--- NOTE | 2019-03-28 18:43 | NUR ---
PATIENT STARTED LEVOFLOXIN 500 MG PO DAILY. PT TOLERATED WELL. FIRST DOSE ADMINISTERED AND NO S/SX NOTED DUE TO ANTIBIOTIC. PT IS VERY FRIENDLY WITH STAFF AND PEERS. MED COMPLIANT. TRANSFER WITH ASSISTANCE. CHAIR ALARM IN PLACE AND ACTIVE. WILL CONT PLAN OF CARE. WILL CONT TO MONITOR Q 15 MINS.
[2019-03-28 23:17] VITALS: BP 146/57
--- NOTE | 2019-03-29 01:16 | NUR ---
b) patient is alert and oriented to person and place, impatient at times, I) Administered scheduled ed medications as ordered, monitored for wants and needs, R) Mediation compliant, social with peers and staff, P) Continue plan of care.
[2019-03-29 07:41] LABS: INR 2.15 (0.85-1.17); PROTIME 23.4 SECONDS (11.6-15.0)
--- NOTE | 2019-03-29 08:08 | NUR ---
REC'D PATIENT LAYING IN BED WITH EYES OPEN. RESP EVEN AND NONLABOED. NO ACUTE DISTRESS NOTED. PATIENT IS CONFUSED ORIENTED TO SELF. FRIENDLY WITH PEERS AND STAFF. IMPATIENT AT TIMES. MED COMPLIAINT. WILL CONT PLAN OF CARE.
--- NOTE | 2019-03-29 08:34 | NUR ---
SW SPOKE TO PT'S CONTACT, ALEJANDRINA, TO DISCUSS PAPERS NEEDED FOR NH PLACEMENT AND HOW IT IS NOT GOING TO HAPPEN DUE TO HIM NOT BEING ABLE TO GET POA PAPERWORK SIGNED ON THE UNIT. GUMARO STATED SHE WOULD REFER TO A ASSISTED WHO WOULD TAKE HER JUST FOR REHAB AND THEN HE CAN START THE PROCESS. ALEJANDRINA STATED HE WAS GETTING THE PAPERWORK DRAWN UP TO BECOME HER POA. GUMARO STATED SHE WOULD CONTINUE TO WORK ON DISCHARGE PLANNING. ALEJANDRINA VOICED UNDERSTANDING OF CONVERSATION.
[2019-03-29 09:21] VITALS: BP 133/107
--- NOTE | 2019-03-29 12:42 | NUR ---
Nutrition follow-up: Diet: Regular PO intake 75-100% of meals +BM RDN following.
--- NOTE | 2019-03-29 14:15 | PN ---
PATIENT:ARTHUR TOBAR MEDICAL RECORD: [id number] LOCATION:[facility] ADMISSION DATE: 03/14/19 PROGRESS NOTE DATE OF SERVICE: 03/28/2019 SUBJECTIVE: The patient's case was discussed with staff. She has no new complaint. OBJECTIVE: The patient is in good behavioral control with a depressed mood, but certainly no thoughts of self-harm or psychotic symptoms. I think she is very appropriate for rehabilitative services and in fact she is anxious to go to them. ASSESSMENT: 1. Major depression. 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 PLAN: The patient will be transitioned out of the hospital today. She will receive rehab services. TRANSINT:[id number] Voice Confirmation ID: [id number] DOCUMENT ID: [id number] VICTOR MANUEL HORNER MD at 1415 CC: [id number] DICTATION DATE: 03/28/19 1526 IMPLEMENT MECHANIC: 03/28/192018 ADM IN [place] [id number] [place] [id number]
--- NOTE | 2019-03-29 15:00 | NUR ---
PATIENT DISCHARGED TO [facility] FOR REHAB. BELONGINGS SENT WITH PATIENT AND PAPERWORK WAS SENT WITH PERSON THAT CAME TO [facility] HERE. CALM AND STABLE AT TIME OF DISCHARGE. PT WHEELED OUT TO VAN WITH EGG AND SPICE MIXER AND PT STEP INTO VAN.
--- NOTE | 2019-03-30 10:36 | PN ---
PATIENT:ARTHUR TOBAR MEDICAL RECORD: [id number] LOCATION:[facility] ADMISSION DATE: 03/14/19 PROGRESS NOTE DATE OF SERVICE: 03/29/2019 SUBJECTIVE: The patient's case was discussed with staff. She has no new complaint. OBJECTIVE: The patient could not be transferred to rehab yesterday for reasons that are unclear to me. Apparently, there is something to do with transportation or paperwork. The patient has a depressed mood. She is not suicidal. She does have some confusion, but I think she could participate reasonably well in a rehab program and she certainly interested in doing so. ASSESSMENT: 1. Major depression. 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 PLAN: Current medicines have been reviewed and will be maintained. I anticipate she can be discharged soon. TRANSINT:[id number] Voice Confirmation ID: [id number] DOCUMENT ID: [id number] VICTOR MANUEL HORNER MD at 1036 CC: [id number] DICTATION DATE: 03/29/19 1539 SHRIMPER: 03/29/197 DIS IN 03/29/19 [facility] [address] [place] [address]
== END 2019-03-29 16:29 | DRG 57 ==
LOC: D.PSYCH 16:04
PROVIDERS: Family Medicine; ADMIT Psychiatry & Neurology Psychiatry; ATTEND Psychiatry & Neurology Psychiatry
DX: G30.1 Alzheimer's disease with late onset (principal); F02.81 Dementia in other diseases classified elsewhere, unspecified severity, with behavioral disturbance; N39.0 Urinary tract infection, site not specified; F32.9 Major depressive disorder, single episode, unspecified; I10 Essential (primary) hypertension; B37.9 Candidiasis, unspecified; R63.0 Anorexia; Z68.24 Body mass index [BMI] 24.0-24.9, adult; I49.9 Cardiac arrhythmia, unspecified; B96.20 Unspecified Escherichia coli [E. coli] as the cause of diseases classified elsewhere; M54.5 Low back pain; M62.830 Muscle spasm of back; K59.00 Constipation, unspecified